=== PATIENT | female | born 1980 | race Caucasian/White ===

== ENCOUNTER 2018-07-09 05:36 | Day surgery (SDC) | payer OTHER ==
[~2018-07-09] VITALS: Ht 170.2 cm; Wt 98.0 kg
[2018-07-09] MEDS ORDERED: ONDANSETRON HCL 4 MG/2 ML VIAL IVP PRN ×2 (09:00→09:45)
[2018-07-09] MEDS ORDERED: KETOROLAC TROMETHAMINE 30 MG VIAL IVP PRN (09:00)
[2018-07-09] MEDS ORDERED: fentaNYL CITRATE/PF 100 MCG/2 ML AMP IVP PRN ×2 (09:00)
[2018-07-09] MEDS ORDERED: OXYCODONE/ACETAMINOPHEN 5-325 TABLET PO PRN (09:45)
[2018-07-09] MEDS ORDERED: HYDROmorphone 2 MG TAB PO PRN (09:45)
[2018-07-09] MEDS ORDERED: PROMETHAZINE HCL 25 MG/ML AMP IM PRN (09:45)
[2018-07-09] MEDS ORDERED: fentaNYL CITRATE/PF 100 MCG/2 ML AMP ONE (10:24)
[2018-07-09 11:27] VITALS: BP_SYST 134
[2018-07-09] MEDS ORDERED: OXYCODONE/ACETAMINOPHEN 5-325 TABLET ONE (12:22)
[2018-07-09] MEDS ORDERED: IBUPROFEN 600 MG TABLET ONE (12:38)
[2018-07-09] MEDS ORDERED: IBUPROFEN 600 MG TABLET PO ONE (12:45)
== END 2018-07-09 13:35 | disposition home or self-care (01) ==
LOC: SDS 05:36
PROVIDERS: ATTEND Obstetrics & Gynecology
DX: N83.202 Unspecified ovarian cyst, left side (principal); N83.201 Unspecified ovarian cyst, right side; N80.3 Endometriosis of pelvic peritoneum; N90.89 Other specified noninflammatory disorders of vulva and perineum; L91.8 Other hypertrophic disorders of the skin; R10.2 Pelvic and perineal pain; Z68.33 Body mass index [BMI] 33.0-33.9, adult; E66.3 Overweight
CPT/HCPCS: 11200; 36415; 58350; 58662; 86886; 86900; 86901; 88304; 88305; C1727; J3010; J7120; 88307